=== PATIENT | female | born 1965 | race Caucasian/White ===

== ENCOUNTER → 2020-08-17 | Outpatient (CLI) | payer MEDICARE, OTHER ==
[~2020-08-17] MED LIST: BENZONATATE200 MG PO; PREDNISONE20 MG PO
== END ==
LOC: KOH-I 11:47
DX: R10.2 Pelvic and perineal pain (principal)
CPT/HCPCS: 72170

== ENCOUNTER 2021-02-21 15:42 | Emergency (ER) | payer MEDICARE, OTHER ==
[2021-02-21 17:36] LABS: HEMOGLOBIN 13.9 gm/dl (12.3-15.3); RED BLOOD COUNT 4.28 M/UL (4.00-5.10); WHITE BLOOD COUNT 7.5 K/UL (4.5-11.0)
[2021-02-21 17:53] LABS: BUN/CREATININE RATIO 12 (0-10)
== END 2021-02-21 19:08 | disposition home or self-care (01) ==
LOC: ER1 15:42
PROVIDERS: Emergency Medicine
DX: L76.32 Postprocedural hematoma of skin and subcutaneous tissue following other procedure (principal)
CPT/HCPCS: 80048; 85025; 93926; 99284

== ENCOUNTER 2021-05-06 14:15 | Emergency (ER) | payer MEDICARE, OTHER ==
[2021-05-06] MEDS ORDERED: BACTRIM DS TAB1 EACH PO (15:51)
[2021-05-06] MEDS ORDERED: MOBIC15 MG PO (15:51)
[2021-05-06] MEDS ORDERED: CEPHALEXIN500 M1 PO (15:51)
== END 2021-05-06 16:00 | disposition home or self-care (01) ==
LOC: ER1 14:15
DX: L02.416 Cutaneous abscess of left lower limb (principal); F17.200 Nicotine dependence, unspecified, uncomplicated; I10 Essential (primary) hypertension; Z88.8 Allergy status to other drugs, medicaments and biological substances
CPT/HCPCS: 10060; 87070; 87205; 99283